=== PATIENT | male | born 1990 | race Caucasian/White ===

== ENCOUNTER → 2016-12-02 | Day surgery (SDC) | payer OTHER ==
[~2016-12-02] MED LIST: ACETAMINOPHEN 1000 MG/100 ML VIAL IV ONE; BUPIVACAINE/EPINEPHRINE 0.25% PF 30 ML VIAL ONE; KETOROLAC TROMETHAMINE 30 MG/ML (IVP) VIAL IV PUSH ONE; LACTATED RINGER'S 1000 ML INJ 1,000 ML ONE; LEXA10TA PO; LITH300 PO; MEPERIDINE HCL 25 MG/ML VIAL ONE; MIDAZOLAM HCL 2 MG/2 ML VIAL ONE; ONDANSETRON HCL 4 MG/2 ML VIAL IV PUSH ONE; PROPOFOL 200 MG/20 ML AMP IV ONE; ceFAZolin 2 GM PREMIX 50 ML ONE
--- NOTE | 2016-12-02 10:45 | TN ---
cc: KELLY CHAPARRO MD DATE OF SURGERY: 12/02/2016 PREOPERATIVE DIAGNOSIS Umbilical hernia. POSTOPERATIVE DIAGNOSIS Umbilical hernia. PROCEDURE Open repair of umbilical hernia with mesh. SURGEON Kelly Chaparro TOOL TROUBLE SHOOTER Germania Mckinney ESTIMATED BLOOD LOSS 5 cc. COMPLICATIONS None apparent. ANESTHESIA General endotracheal. OPERATIVE FINDINGS The patient had an approximately 1cm umbilical hernia with incarcerated preperitoneal fat. PROCEDURE IN DETAIL The patient was taken to the operating room, placed in a supine position. General endotracheal anesthesia was induced. The abdomen was prepped and draped in usual sterile fashion. A surgical timeout was performed to verify correct patient, procedure and site. The patient was administered appropriate perioperative antibiotics. A transverse incision was made superior to the umbilicus. Dissection was carried out down through the subcutaneous tissue and then around the umbilical stalk. The umbilical stalk was from underlying incarcerated preperitoneal fat. The preperitoneal fat was unable to be reduced into the abdominal cavity. Therefore, it was ligated with 3-0 Vicryl suture and the preperitoneal fat removed. The fascial defect was then visible. It was approximately 1cm. The fat was cleaned off around the fascial defect and the fascial defect was closed with multiple simple interrupted 0 Ethibond sutures. Due to the fact that the patient is very active at work, I did elect to place an overlay mesh using lightweight polypropylene cut to approximately 3 x 3 inches. The subcutaneous tissue was cleared of the fat for a number of centimeters around the fascial repair. The mesh was then placed and secured in all four corners and each border using 0 Ethibond suture. There was good coverage of the fascial repair. The umbilical stalk was tacked down with 3-0 Vicryl sutures. The incision was closed with deep dermal 3-0 Vicryl interrupted and running subcuticular 4-0 Monocryl as well as Mastisol and Steri-Strips. A sterile dressing and abdominal binder were applied. The patient tolerated the procedure well, was extubated and taken to PACU in stable condition. MD WILSON Raya/KURT /10:27 AM /10:38 AM
== END | disposition home or self-care (01) ==
LOC: ESDC 07:55
PROVIDERS: ATTEND Surgery
DX: K42.9 Umbilical hernia without obstruction or gangrene (principal)
CPT/HCPCS: 00750; 49585; J0131; J0690; J1885; J2175; J2250; J2405; J3010; J7120; C1781

== ENCOUNTER 2017-06-08 19:31 | Emergency (ER) | payer OTHER ==
[~2017-06-08] VITALS: Ht 167.6 cm; Wt 74.8 kg
[~2017-06-08 19:31] MED LIST changes: -ACETAMINOPHEN 1000 MG/100 ML VIAL IV ONE; -BUPIVACAINE/EPINEPHRINE 0.25% PF 30 ML VIAL ONE; -KETOROLAC TROMETHAMINE 30 MG/ML (IVP) VIAL IV PUSH ONE; -LACTATED RINGER'S 1000 ML INJ 1,000 ML ONE; -MEPERIDINE HCL 25 MG/ML VIAL ONE; -MIDAZOLAM HCL 2 MG/2 ML VIAL ONE; -ONDANSETRON HCL 4 MG/2 ML VIAL IV PUSH ONE; -PROPOFOL 200 MG/20 ML AMP IV ONE; -ceFAZolin 2 GM PREMIX 50 ML ONE
[2017-06-08 19:34] VITALS: BP 147/76; PULSE 96; RESP 15; TEMP 98.2; O2SAT 97
--- NOTE | 2017-06-08 19:41 | PD ---
Physical Exam Date Seen by Provider: Jun 08, 2017 Time Seen by Provider: 19:39 Narrative 27 YOWM C/O "I FEEL LIKE SHIT". TIRE ,SORE THROAT,N/V TODAY VS REVIEWED WAITING FOR BED PLACEMENT Data Data Last Documented VS Vital Signs Date Time Temp Pulse Resp B/P Pulse Ox O2 Delivery O2 Flow Rate FiO2 06/08/17 19:34 98.2 96 15 147/76 97 Room Air MDM Supervised Visit with NIK: Osvaldo Simmons Jun 08, 2017 19:41
== END 2017-06-08 23:52 | disposition left against medical advice (07) ==
LOC: NED 19:31
DX: J02.9 Acute pharyngitis, unspecified (principal); Z53.21 Procedure and treatment not carried out due to patient leaving prior to being seen by health care provider
CPT/HCPCS: 99281

== ENCOUNTER 2017-10-19 19:46 | Emergency (ER) | payer OTHER ==
[~2017-10-19] VITALS: Ht 167.6 cm; Wt 78.8 kg
[2017-10-19 19:49] VITALS: BP 154/96; PULSE 89; RESP 16; TEMP 98.1; O2SAT 97
[2017-10-19] MEDS ORDERED: SODIUM CHLOR 0.9% 1000 ML INJ 1,000 ML IV SCH ×2 (20:06→20:15)
--- NOTE | 2017-10-19 20:14 | PD ---
HPI Chief Complaint: Flank/Kidney Pain Time Seen by Provider: 19:58 Travel History International Travel<30 days: No Contact w/Intl Traveler<30days: No Traveled to known affect area: No History of Present Illness HPI The patient is a 27-year-old male who complains of right sided flank pain radiating to the right UVJ area along with dysuria for about a week. He states he has blood in his urine. He states he has nausea, vomiting and diarrhea. He denies any previous kidney stones. He has had umbilical hernia surgery less than a year ago. He denies any other surgeries and still has his gallbladder and appendix. He denies any fever. He does have a history of alcohol and marijuana abuse in the past. He does take Adderall for ADHD. PFSH Past Medical History ADHD: Yes (DX A CHILD) Arthritis: No Asthma: No Autoimmune Disease: No Blood Disorders: No Bipolar Disorder: Yes Anxiety: Yes (SINCE AGE 18) Depression: Yes Heart Rhythm Problems: No Cancer: Yes Cardiovascular Problems: No High Cholesterol: No Chemotherapy: No Chest Pain: No Congestive Heart Failure: No COPD: No Cerebrovascular Accident: No Diabetes: No Diminished Hearing: No Endocrine: No Gastrointestinal Disorders: Yes (WHEN PT EATS OR DRINKS ANYTHING, HE GETS DIARRHEA) GERD: No Glaucoma: No Genitourinary: No Headaches: No Hepatitis: No Hiatal Hernia: No Hypertension: Yes Immune Disorder: No Kidney Stones: No Musculoskeletal: No Neurologic: No Psychiatric: Yes (RECENTLY HAVING A WORKUP FOR BIPOLAR; ADHD DX IN 3RD GRADE) Reproductive: No Respiratory: Yes (RECENTLY HAD INFLUENZA; TOOK TAMIFLU) Immunizations Current: Yes Migraines: No Myocardial Infarction: No Radiation Therapy: No Renal Failure: No Seizures: Yes (CHILDHOOD) Sickle Cell Disease: No Sleep Apnea: No Thyroid Disease: No Ulcer: No ?: Not Past Surgical History Abdominal Surgery: No AICD: No Appendectomy: No Arteriovenous Shunt: No Cardiac Surgery: No Cholecystectomy: No Ear Surgery: No Endocrine Surgery: No Eye Surgery: No Genitourinary Surgery: No Gynecologic Surgery: No Insulin Pump: No Joint Replacement: No Oral Surgery: Yes Pacemaker: No Thoracic Surgery: No Tonsillectomy: Yes (adenoidectomy) Other Surgery: Yes (WISDOM TEETH EXTRACTION IN 2006) Social History Alcohol Use: Yes (OCC) Tobacco Use: No Substance Use: No Allergies-Medications (Allergen,Severity, Reaction): Coded Allergies: No Known Allergies (Verified Adverse Reaction, Unknown, 10/19/17) Reported Meds & Prescriptions Reported Meds & Active Scripts Active Reported [place] Carbonate ER ([place] Carbonate) 300 Mg Tab 200 Mg PO DAILY Adderall Xr 24 HR (Amphetamine-Dextroamphetamine ER 24 HR) 25 Mg Cap 25 Mg PO DAILY Once daily in the morning. Escitalopram (Escitalopram Oxalate) 10 Mg Tab 10 Mg PO DAILY Review of Systems Except as stated in HPI: all other systems reviewed are Neg Physical Exam Narrative GENERAL: The patient is alert, slightly dehydrated-appearing, oriented 3 in moderate apparent distress with his abdominal discomfort. His vital signs show blood pressure 151/96 but otherwise normal. SKIN: Focused skin assessment warm/dry. HEAD: Atraumatic. Normocephalic. EYES: Pupils equal and round. No scleral icterus. No injection or drainage. ENT: No nasal bleeding or discharge. Mucous membranes pink and moist. NECK: Trachea midline. No JVD. CARDIOVASCULAR: Regular rate and rhythm. No murmur appreciated. RESPIRATORY: No accessory muscle use. Clear to auscultation. Breath sounds equal bilaterally. GASTROINTESTINAL: Abdomen soft, with tenderness to direct palpation in the right flank and right UVJ/right lower quadrant area, nondistended. Hepatic and splenic margins not palpable. No guarding or rebound is present. MUSCULOSKELETAL: No obvious deformities. No clubbing. No cyanosis. No edema. NEUROLOGICAL: Awake and alert. No obvious cranial nerve deficits. Motor grossly within normal limits. Normal speech. PSYCHIATRIC: Appropriate mood and affect; insight and judgment normal. Data Data Last Documented VS Vital Signs Date Time Temp Pulse Resp B/P (MAP) Pulse Ox O2 Delivery O2 Flow Rate FiO2 10/19/17 21:04 98 Room Air 10/19/17 20:19 16 10/19/17 19:49 98.1 89 154/96 (115) Orders Orders Complete Blood Count With Diff (10/19/17 20:06) Comprehensive Metabolic Panel (10/19/17 20:06) Lipase (10/19/17 20:06) Urinalysis - C+S If Indicated (10/19/17 20:06) Ct Abd/Pel W/O Iv Contrast (10/19/17 20:06) Iv Access Insert/Monitor (10/19/17 20:06) Ecg Monitoring (10/19/17 20:06) Oximetry (10/19/17 20:06) Ondansetron Inj (Zofran Inj) (10/19/17 20:15) Sodium Chlor 0.9% 1000 Ml Inj (Ns 1000 M (10/19/17 20:06) Sodium Chloride 0.9% Flush (Ns Flush) (10/19/17 20:15) Ketorolac Inj (Toradol Inj) (10/19/17 20:15) Sodium Chlor 0.9% 1000 Ml Inj (Ns 1000 M (10/19/17 20:15) Labs Laboratory Tests Test 10/19/17 20:42 10/19/17 21:05 White Blood Count 9.6 TH/MM3 Red Blood Count 5.10 MIL/MM3 Hemoglobin 15.6 GM/DL Hematocrit 45.7 % Mean Corpuscular Volume 89.5 FL Mean Corpuscular Hemoglobin 30.5 PG Mean Corpuscular Hemoglobin Concent 34.1 % Red Cell Distribution Width 12.0 % Platelet Count 258 TH/MM3 Mean Platelet Volume 7.8 FL Neutrophils (%) (Auto) 56.2 % Lymphocytes (%) (Auto) 32.2 % Monocytes (%) (Auto) 7.7 % Eosinophils (%) (Auto) 3.1 % Basophils (%) (Auto) 0.8 % Neutrophils # (Auto) 5.4 TH/MM3 Lymphocytes # (Auto) 3.1 TH/MM3 Monocytes # (Auto) 0.7 TH/MM3 Eosinophils # (Auto) 0.3 TH/MM3 Basophils # (Auto) 0.1 TH/MM3 CBC Comment DIFF FINAL Differential Comment Blood Urea Nitrogen 21 MG/DL Creatinine 0.88 MG/DL Random Glucose 87 MG/DL Total Protein 7.6 GM/DL Albumin 4.2 GM/DL Calcium Level 9.2 MG/DL Alkaline Phosphatase 79 U/L Aspartate Amino Transf (AST/SGOT) 40 U/L Alanine Aminotransferase (ALT/SGPT) 84 U/L Total Bilirubin 1.0 MG/DL Sodium Level 136 MEQ/L Potassium Level 4.0 MEQ/L Chloride Level 105 MEQ/L Carbon Dioxide Level 23.5 MEQ/L Anion Gap 8 MEQ/L Estimat Glomerular Filtration Rate 105 ML/MIN Lipase 238 U/L Urine Color YELLOW Urine Turbidity CLEAR Urine pH 5.5 Urine Specific Bath 1.010 Urine Protein NEG mg/dL Urine Glucose (UA) NEG mg/dL Urine Ketones NEG mg/dL Urine Occult Blood NEG Urine Nitrite NEG Urine Bilirubin NEG Urine Leukocyte Esterase NEG Urine Squamous Epithelial Cells 0-5 /hpf Microscopic Urinalysis Comment CULT NOT INDICATED MDM Medical Decision Making Medical Screen Exam Complete: Yes Emergency Medical Condition: Yes Medical Record Reviewed: Yes Interpretation(s) The complete metabolic profile shows a BUN of 21, AST of 40 and ALT 2 of 84 but is otherwise unremarkable. The CBC is normal. The CT abdomen/pelvis without IV contrast shows no acute findings and the abdomen or pelvis. The urinalysis is normal. Differential Diagnosis Ureteral stone on right, acute appendicitis, colitis, gastroenteritis, dehydration, electrolyte disorder, drug seeking behavior Narrative Course It is now 9:22 PM and the patient feels better. He is able to drink liquids. There is no evidence for appendicitis, ureteral stone or colitis. He does appear somewhat dehydrated with the elevated BUN and normal creatinine. Impression: Gastroenteritis with mild dehydration Plan: The patient will be given Compazine, a work excuse for 3 days and follow- up with his primary care physician. Diagnosis Primary Impression: Gastroenteritis Additional Impression: Mild dehydration Med/Other Pt SpecificInfo: Prescription(s) given Scripts Prochlorperazine Maleate (Prochlorperazine Maleate) 10 Mg Tab 10 MG PO Q6H Y for NAUSEA OR VOMITING, #20 TAB 0 Refills Prov: Harrison Boykin MD 10/19/17 Disposition: 01 DISCHARGE HOME Condition: Stable Harrison Boykin MD Oct 19, 2017 20:14
[2017-10-19] MEDS ORDERED: SODIUM CHLORIDE 0.9% FLUSH 10 ML FLUSH IV FLUSH PRN (20:15)
[2017-10-19] MEDS ORDERED: KETOROLAC TROMETHAMINE 30 MG/ML (IVP) VIAL IVP ONE (20:15)
[2017-10-19] MEDS ORDERED: ONDANSETRON HCL 4 MG/2 ML VIAL IVP ONE (20:15)
[2017-10-19] MEDS ORDERED: LITH300T PO (20:18)
[2017-10-19] MEDS ORDERED: ESCI10TA PO (20:18)
[2017-10-19] MEDS ORDERED: ADDE25CA PO (20:18)
--- NOTE | 2017-10-19 20:53 | RADRPT ---
EXAM DATE/TIME: 10/19/2017 20:16 [facility] COMPARISON: No previous studies available for comparison. INDICATIONS : Hermaturi, nausea, back pain. Right flank pain ORAL CONTRAST: No oral contrast ingested. RADIATION DOSE: 11.35 CTDIvol (mGy) MEDICAL HISTORY : Hypertension. SURGICAL HISTORY : Umbilical hernia repair. ENCOUNTER: Initial ACUITY: 1 day PAIN SCALE: 10/10 LOCATION: Right flank TECHNIQUE: Volumetric scanning of the abdomen and pelvis was performed. Using automated exposure control and ad justment of the mA and/or kV according to patient size, radiation dose was kept as low as reasonably achievable to obtain optimal diagnostic quality images. DICOM format image data is available electro nically for review and comparison. FINDINGS: LOWER LUNGS: The visualized lower lungs are clear. LIVER: Visualized portions are focal and unremarkable. SPLEEN: Visualized portions unremarkable. PANCREAS: Within normal limits. KIDNEYS: Normal in size and shape. There is no mass, stone, or hydronephrosis. ADRENAL GLANDS: Within normal limits. VASCULAR: There is no aortic aneurysm. BOWEL/MESENTERY: The stomach, small bowel, and colon demonstrate no acute abnormality. There is no free intraperitone al air or fluid. ABDOMINAL WALL: Probable previous umbilical hernia repair RETROPERITONEUM: There is no lymphadenopathy. BLADDER: No wall thickening or mass. REPRODUCTIVE: Within normal limits. INGUINAL: There is no lymphadenopathy or hernia. MUSCULOSKELETAL: Right L5 pars fracture which appears old. CONCLUSION: No acute CT findings in the abdomen or pelvis. Husam Orozco MD on October 19, 2017 at 20:47 Board Certified Radiologist. This report was verified electronically.
[2017-10-19 20:57] LABS: AUTOMATED NEUTROPHIL # 5.4 TH/MM3 (1.8-7.7); BASOPHIL # 0.1 TH/MM3 (0-0.2); BASOPHIL % 0.8 % (0.0-2.0); EOSINOPHIL # 0.3 TH/MM3 (0-0.4); EOSINOPHIL % 3.1 % (0.0-4.0); HEMATOCRIT 45.7 % (39.0-51.0); HEMOGLOBIN 15.6 GM/DL (13.0-17.0); LYMPH % 32.2 % (9.0-44.0); LYMPHOCYTE # 3.1 TH/MM3 (1.0-4.8); MEAN CELL VOLUME 89.5 FL (80.0-100.0); MEAN CORPUSCULAR HEMOGLOBIN 30.5 PG (27.0-34.0); MEAN CORPUSCULAR HGB CONC 34.1 % (32.0-36.0); MEAN PLATELET VOLUME 7.8 FL (7.0-11.0); MONO % 7.7 % (0.0-8.0); MONOCYTE # 0.7 TH/MM3 (0-0.9); NEUT % 56.2 % (16.0-70.0); PLATELET COUNT 258 TH/MM3 (150-450); WHITE BLOOD COUNT 9.6 TH/MM3 (4.0-11.0)
[2017-10-19 21:04] VITALS: O2SAT 98
[2017-10-19 21:05] LABS: CHLORIDE 105 MEQ/L (98-107); SODIUM (NA) 136 MEQ/L (136-145)
[2017-10-19 21:09] LABS: ALBUMIN 4.2 GM/DL (3.4-5.0); BICARBONATE 23.5 MEQ/L (21.0-32.0); BLOOD UREA NITROGEN 21 MG/DL (7-18); CALCIUM 9.2 MG/DL (8.5-10.1); GLUCOSE,RANDOM 87 MG/DL (74-106); LIPASE 238 U/L (73-393)
[2017-10-19 21:12] LABS: ALT (GPT) 84 U/L (12-78); AST (GOT) 40 U/L (15-37); CREATININE 0.88 MG/DL (0.60-1.30); GLOMERULAR FILTRATION RATE 105 ML/MIN (>89)
[2017-10-19 21:13] LABS: BILIRUBIN, URINE NEG (NEG); BLOOD, URINE NEG (NEG); GLUCOSE,URINE NEG (NEG); KETONE, URINE NEG (NEG); NITRITE,URINE NEG (NEG); PH, URINE 5.5 (5.0-8.5); URINE LEUKOCYTE ESTERASE NEG (NEG)
[2017-10-19 21:14] LABS: TOTAL PROTEIN 7.6 GM/DL (6.4-8.2)
[2017-10-19 21:15] LABS: ALKALINE PHOSPHATASE 79 U/L (45-117)
[2017-10-19 21:19] LABS: SQUAMOUS EPITHELIAL CELL URINE 0-5 /hpf (0-5); URINE COLOR YELLOW (YELLW/STRAW)
[2017-10-19] MEDS ORDERED: PROC10TA PO (21:25)
[2017-10-19 21:56] VITALS: BP 134/68
== END 2017-10-19 21:57 | disposition home or self-care (01) ==
LOC: PHED 19:46
DX: K52.9 Noninfective gastroenteritis and colitis, unspecified (principal); E86.0 Dehydration; R30.0 Dysuria; I10 Essential (primary) hypertension
CPT/HCPCS: 74176; 80053; 81001; 83690; 85025; 96361; 96374; 96375; 99285; J1885; J2405; J7030

== ENCOUNTER 2017-12-25 10:29 | Emergency (ER) | payer OTHER ==
[~2017-12-25] VITALS: Ht 167.6 cm; Wt 84.0 kg
[~2017-12-25 10:29] MED LIST changes: +ADDE25CA PO; +ESCI10TA PO; -LEXA10TA PO; -LITH300 PO; +LITH300T PO; +PROC10TA PO
[2017-12-25 10:34] VITALS: BP 162/83; PULSE 89; RESP 16; TEMP 98.5; O2SAT 97
--- NOTE | 2017-12-25 11:12 | PD ---
HPI Chief Complaint: Injury Time Seen by Provider: 10:58 Travel History International Travel<30 days: No Contact w/Intl Traveler<30days: No Traveled to known affect area: No History of Present Illness HPI This patient was using a circular saw and cut his right third finger. Duration 1 hour. Severity is moderate. Reports numbness at the tip of the finger. No alleviating factors. No Exacerbating factors. He reports his tetanus up-to- date PFSH Past Medical History ADHD: Yes (DX A CHILD) Arthritis: No Asthma: No Autoimmune Disease: No Blood Disorders: No Bipolar Disorder: Yes Anxiety: Yes (SINCE AGE 18) Depression: Yes Heart Rhythm Problems: No Cancer: Yes Cardiovascular Problems: No High Cholesterol: No Chemotherapy: No Chest Pain: No Congestive Heart Failure: No COPD: No Cerebrovascular Accident: No Diabetes: No Diminished Hearing: No Endocrine: No Gastrointestinal Disorders: Yes (WHEN PT EATS OR DRINKS ANYTHING, HE GETS DIARRHEA) GERD: No Glaucoma: No Genitourinary: No Headaches: No Hepatitis: No Hiatal Hernia: No Hypertension: Yes Immune Disorder: No Kidney Stones: No Musculoskeletal: No Neurologic: No Psychiatric: Yes (RECENTLY HAVING A WORKUP FOR BIPOLAR; ADHD DX IN 3RD GRADE) Reproductive: No Respiratory: Yes (RECENTLY HAD INFLUENZA; TOOK TAMIFLU) Immunizations Current: Yes Migraines: No Myocardial Infarction: No Radiation Therapy: No Renal Failure: No Seizures: Yes (CHILDHOOD) Sickle Cell Disease: No Sleep Apnea: No Thyroid Disease: No Ulcer: No Tetanus Vaccination: < 5 Years ?: Not Past Surgical History Abdominal Surgery: Yes (HERNIA) AICD: No Appendectomy: No Arteriovenous Shunt: No Cardiac Surgery: No Cholecystectomy: No Ear Surgery: No Endocrine Surgery: No Eye Surgery: No Genitourinary Surgery: No Gynecologic Surgery: No Insulin Pump: No Joint Replacement: No Oral Surgery: Yes Pacemaker: No Thoracic Surgery: No Tonsillectomy: Yes (adenoidectomy) Other Surgery: Yes (WISDOM TEETH EXTRACTION IN 2006) Social History Alcohol Use: Yes (OCC) Tobacco Use: Yes (1 pack a day) Substance Use: No Allergies-Medications (Allergen,Severity, Reaction): Coded Allergies: No Known Allergies (Verified Adverse Reaction, Unknown, 12/25/17) Reported Meds & Prescriptions Reported Meds & Active Scripts Active Reported [place] Carbonate ER ([place] Carbonate) 300 Mg Tab 200 Mg PO DAILY Adderall Xr 24 HR (Amphetamine-Dextroamphetamine ER 24 HR) 25 Mg Cap 25 Mg PO DAILY Once daily in the morning. Escitalopram (Escitalopram Oxalate) 10 Mg Tab 10 Mg PO DAILY Review of Systems General / Constitutional: No: Fever Eyes: No: Visual changes HENT: No: Headaches Cardiovascular: No: Chest Pain or Discomfort Respiratory: No: Shortness of Breath Gastrointestinal: No: Abdominal Pain Genitourinary: No: Dysuria Musculoskeletal: Positive: Pain Skin: No Rash Neurologic: Positive: Sensory Disturbance, No: Weakness Psychiatric: No: Depression Endocrine: No: Polydipsia Hematologic/Lymphatic: No: Easy Bruising Physical Exam Narrative GENERAL: Well-nourished, well-developed patient in no apparent distress. SKIN: Focused skin assessment reveals no rash and nodules. Skin is Warm and dry. HEAD: Atraumatic. Normocephalic. EYES: Pupils equal and round. No scleral icterus. No injection or drainage. ENT: No nasal bleeding or discharge. Mucous membranes pink and moist. NECK: Trachea midline. No JVD. CARDIOVASCULAR: Regular rate and rhythm. No murmur appreciated. RESPIRATORY: No accessory muscle use. Clear to auscultation. Breath sounds equal bilaterally. GASTROINTESTINAL: Abdomen soft, non-tender, nondistended. Hepatic and splenic margins not palpable. MUSCULOSKELETAL: No obvious deformities. No clubbing. No cyanosis. No edema. Patient has a laceration of the tip of the right third finger. NEUROLOGICAL: Awake and alert. No obvious cranial nerve deficits. Motor grossly within normal limits. Normal speech. PSYCHIATRIC: Appropriate mood and affect; insight and judgment normal. Data Data Last Documented VS Vital Signs Date Time Temp Pulse Resp B/P (MAP) Pulse Ox O2 Delivery O2 Flow Rate FiO2 12/25/17 10:34 98.5 89 16 162/83 (109) 97 Orders Orders Finger ([id number]) (12/25/17 ) Wound Care (12/25/17 11:13) Lidocaine 1% Inj (50 Ml) (Xylocaine 1% I (12/25/17 11:15) Bupivacaine Pf 0.5% Inj (Marcaine Pf 0.5 (12/25/17 11:15) Lidocaine Pf 1% Inj (Xylocaine-Mpf 1% In (12/25/17 11:18) Lidocaine Pf 1% Inj (Xylocaine-Mpf 1% In (12/25/17 11:22) MDM Medical Decision Making Medical Screen Exam Complete: Yes Emergency Medical Condition: Yes Medical Record Reviewed: Yes Differential Diagnosis Laceration, contusion, abrasion Narrative Course I have reviewed the patient's electronic medical record. Tetanus is up-to-date Ordered a finger x-ray Finger x-rays negative Laceration repaired by BLANCA Fuentes I wrote him medicine for pain and antibiotics Diagnosis Primary Impression: Laceration of finger of right hand with damage to nail Qualified Codes: S61.312A - Laceration without foreign body of right middle finger with damage to nail, initial encounter Additional Instructions: The patient was advised to follow up with their physician and return if they worsen. The patient was warned about potential sedation for the medications they will receive on prescription. Follow up with hand physician Med/Other Pt SpecificInfo: Prescription(s) given Scripts Oxycodone-Acetaminophen (Percocet) 5-325 mg Tab 1 TAB PO Q6H Y for PAIN, #20 TAB 0 Refills Prov: Sinan Case MD 12/25/17 Sulfamethoxazole-Trimethoprim (Bactrim DS) 800-160 Mg Tab 1 TAB PO BID for Infection, #10 TAB 0 Refills Prov: Sinan Case MD 12/25/17 Disposition: 01 DISCHARGE HOME Condition: Stable Sinan Case MD Dec 25, 2017 11:12
[2017-12-25] MEDS ORDERED: LIDOCAINE HCL 1% 50 ML VIAL INFIL ONE (11:15)
[2017-12-25] MEDS ORDERED: BUPIVACAINE HCL PF 0.5% 10 ML VIAL NERV BLOCK ONE (11:15)
[2017-12-25] MEDS ORDERED: LIDOCAINE HCL 1% PF 10 ML VIAL ONE (11:18)
[2017-12-25] MEDS ORDERED: LIDOCAINE HCL 1% PF 30 ML VIAL ONE (11:22)
--- NOTE | 2017-12-25 11:24 | RADRPT ---
EXAM DATE/TIME: 12/25/2017 11:09 [facility] COMPARISON: No previous studies available for comparison. INDICATIONS : Right finger laceration using hand saw. MEDICAL HISTORY : None. SURGICAL HISTORY : None. ENCOUNTER: Initial ACUITY: 1 day PAIN SCORE: 10/10 LOCATION: Right distal 3rd digit FINDINGS: Examination of the third digit of the right hand demonstrates no evidence of fracture or dislocation. No radiopaque foreign bodies are seen. The soft tissues are intact. CONCLUSION: Negative for fracture or radiopaque foreign body Adal Hurley MD FACR on December 25, 2017 at 11:22 Board Certified Radiologist. This report was verified electronically.
[2017-12-25] MEDS ORDERED: BACT800T5 PO (12:15)
[2017-12-25] MEDS ORDERED: PERC5TAB12 PO (12:15)
--- NOTE | 2017-12-25 12:18 | PD ---
Physical Exam Date Seen by Provider: Dec 25, 2017 Time Seen by Provider: 12:17 Narrative My attending asked me to repair laceration. Please refer to his note. Data Data Last Documented VS Vital Signs Date Time Temp Pulse Resp B/P (MAP) Pulse Ox O2 Delivery O2 Flow Rate FiO2 12/25/17 10:34 98.5 89 16 162/83 (109) 97 Orders Orders Finger ([id number]) (12/25/17 ) Wound Care (12/25/17 11:13) Lidocaine 1% Inj (50 Ml) (Xylocaine 1% I (12/25/17 11:15) Bupivacaine Pf 0.5% Inj (Marcaine Pf 0.5 (12/25/17 11:15) Lidocaine Pf 1% Inj (Xylocaine-Mpf 1% In (12/25/17 11:18) Lidocaine Pf 1% Inj (Xylocaine-Mpf 1% In (12/25/17 11:22) MDM Medical Record Reviewed: Yes Supervised Visit with NIK: No Procedures Procedure Narrative LACERATION LOCATION: middle finger right LENGTH: 2 cm circular NUMBER OF STITCHES/JEWELL: 10 sutures REPAIR: The area of the laceration was prepped with Betadine and sterilely draped. The laceration was infiltrated with 1% Xylocaine. The wound was copiously irrigated and explored without evidence of foreign body, tendon injury or neurovascular injury. The wound was closed using 4-0 Prolene. This was a 1 layer repair. A sterile dressing was applied. The patient was advised to keep the dressing clean and dry. Patient tolerated the procedure well. Diagnosis Primary Impression: Laceration of finger of right hand with damage to nail Qualified Codes: S61.312A - Laceration without foreign body of right middle finger with damage to nail, initial encounter Patient Instructions: General Instructions Departure Forms: Tests/Procedures Additional Instruction: The patient was advised to follow up with their physician and return if they worsen. The patient was warned about potential sedation for the medications they will receive on prescription. Follow up with hand physician Scripts Oxycodone-Acetaminophen (Percocet) 5-325 mg Tab 1 TAB PO Q6H Y for PAIN, #20 TAB 0 Refills Prov: Sinan Case MD 12/25/17 Sulfamethoxazole-Trimethoprim (Bactrim DS) 800-160 Mg Tab 1 TAB PO BID for Infection, #10 TAB 0 Refills Prov: Sinan Case MD 12/25/17 Disposition: 01 DISCHARGE HOME Condition: Ap Capellan Dec 25, 2017 12:18
== END 2017-12-25 12:25 | disposition home or self-care (01) ==
LOC: PHED 10:29
DX: S61.312A Laceration without foreign body of right middle finger with damage to nail, initial encounter (principal); F32.9 Major depressive disorder, single episode, unspecified; I10 Essential (primary) hypertension; F17.210 Nicotine dependence, cigarettes, uncomplicated; W31.2XXA Contact with powered woodworking and forming machines, initial encounter; Z85.9 Personal history of malignant neoplasm, unspecified
CPT/HCPCS: 12001; 73140